=== PATIENT | male | born 1975 | race Hispanic/Latino ===

== ENCOUNTER 2020-09-18 07:17 | Emergency (ER) | payer SELFPAY ==
--- NOTE | ~2020-09-18 | XR_ITS ---
EXAMINATION: XR hand LT min 3V DATE: 09/18/2020 08:27 INDICATION: Smashing injury to the left fifth digit TECHNIQUE: Posteroanterior, oblique and lateral views of the left hand were obtained. COMPARISON: None. FINDINGS: Abnormal contour to the soft tissues along the palmar/radial aspect of the left fifth distal phalanx which could represent either laceration or artifact bandaging. Bone alignment is normal. No fracture. Joint spaces are normal. IMPRESSION: 1. No osseous abnormality. Reviewed, dictated and finalized at location A. IMPRESSION: 1. No osseous abnormality.
[2020-09-18 07:25] VITALS: BP 136/85; PULSE 55; RESP 16; TEMP 36.1; O2SAT 100
[2020-09-18] MEDS: TETANUS,DIPHTHERIA,AC PERTUSSIS ADULT (0.5 ML) BOOSTRIX IM (08:19)
--- NOTE | 2020-09-18 10:33 | ED_ITS ---
HPI - Wound/Laceration General Chief Complaint: Wound/Laceration Stated Complaint: L hand injury Time Seen by Provider: 09/18/20 08:31 Related Data Allergies Allergy/AdvReac Type Severity Reaction Status Date / Time No Known Allergies Allergy Verified 09/18/20 07:35 [facility] Social History Social History Gender identity (if verbalized by the patient): Male Course Vital Signs Vital signs: Vital Signs Temperature 36.1 C L 09/18/20 07:25 Pulse Rate 55 L 09/18/20 07:25 Respiratory Rate 16 09/18/20 07:25 Blood Pressure 136/85 09/18/20 07:25 Pulse Oximetry 100 09/18/20 07:25 Temperature 36.1 C L 09/18/20 07:25 Pulse Rate 55 L 09/18/20 07:25 Respiratory Rate 16 09/18/20 07:25 Blood Pressure 136/85 09/18/20 07:25 Pulse Oximetry 100 09/18/20 07:25 Discharge Plan Discharge Clinical Impression: Finger avulsion Patient Disposition: Home, Self-Care Condition: Stable Instructions: Skin Avulsion (ED) Additional Instructions: Follow up as follows: Dr. Simms, [facility] [address] [facility] [phone] Call today (09/18) to schedule an appointment for tomorrow (09/19) afternoon) If there is any difficulty scheduling please just go there at 1 PM Prescriptions: New hydrocodone-acetaminophen 5-325 mg tablet 1 tablet PO Q8H PRN (Reason: pain) Qty: 12 RF: 0 Follow-up/Referrals: PHYSICIAN,[facility] [place] [Primary Care Provider] -
--- NOTE | 2020-09-18 10:46 | ED_ITS ---
HPI - Wound/Laceration General Chief Complaint: Wound/Laceration Stated Complaint: L hand injury Time Seen by Provider: 09/18/20 08:31 Source: patient, family and freelance interpreter/translator Mode of arrival: ambulatory Limitations: no limitations and other (Family interprets) History of Present Illness HPI narrative: 45-year-old male Right-handed Was lifting something heavy this morning and it slipped and landed on his left fifth finger There is a large skin defect on the palmar side Is able to move the finger No other injuries Related Data Allergies Allergy/AdvReac Type Severity Reaction Status Date / Time No Known Allergies Allergy Verified 09/18/20 07:35 Review of Systems Constitutional: Constitutional: Denies weakness Respiratory: Respiratory: Denies cough and Denies dyspnea Gastrointestinal: Gastrointestinal: Denies nausea and Denies vomiting Musculoskeletal: Musculoskeletal: Reports arthralgias and Reports joint s welling Neurologic: Denies numbness and Denies weakness [facility] Social History Social History Gender identity (if verbalized by the patient): Male Exam Const: General: no acute distress and alert Orientation/consciousness: patient oriented x3 HENMT: Head: normal to inspection Eyes: Conjunctivae: conjunctivae normal EOM: EOMs intact bilaterally Resp: Effort & Inspection: normal respiratory effort and not labored Skin: General skin exam: normal color Neuro: General: moves all extremities Speech: normal speech Extrem: Other: The skin is avulsed from the left fifth finger on the palmar side from the DIP to the tip with some bone likely visible distally The nail is intact He can flex the DIP Course Course Emergency Course: Discussed with Dr. Mcgregor who recommends eval by hand at [facility] or [facility] Spoke with Dr. Simms at [facility] and we will dress him up here and he will be evaluated in her clinic there tomorrow afternoon Vital Signs Vital signs: Vital Signs Temperature 36.1 C L 09/18/20 07:25 Pulse Rate 55 L 09/18/20 07:25 Respiratory Rate 16 09/18/20 07:25 Blood Pressure 136/85 09/18/20 07:25 Pulse Oximetry 100 09/18/20 07:25 Temperature 36.1 C L 09/18/20 07:25 Pulse Rate 55 L 09/18/20 07:25 Respiratory Rate 16 09/18/20 07:25 Blood Pressure 136/85 09/18/20 07:25 Pulse Oximetry 100 09/18/20 07:25 Discharge Plan Discharge Clinical Impression: Finger avulsion Patient Disposition: Home, Self-Care Condition: Stable Instructions: Skin Avulsion (ED) Additional Instructions: Follow up as follows: Dr. Simms, [facility] [address] [place] [address]. [phone] Call today (09/18) to schedule an appointment for tomorrow (09/19) afternoon) If there is any difficulty scheduling please just go there at 1 PM Prescriptions: New hydrocodone-acetaminophen 5-325 mg tablet 1 tablet PO Q8H PRN (Reason: pain) Qty: 12 RF: 0 Follow-up/Referrals: PHYSICIAN,MA[facility]GER [facility] [Primary Care Provider] -
[2020-09-18 11:02] VITALS: BP 136/67; PULSE 60; RESP 16; O2SAT 99
== END 2020-09-18 11:00 | disposition home or self-care (01) ==
PROVIDERS: Emergency Provider Emergency Medicine
DX: S61.002A Unspecified open wound of left thumb without damage to nail, initial encounter (principal); Z23 Encounter for immunization; W20.8XXA Other cause of strike by thrown, projected or falling object, initial encounter
CPT/HCPCS: 73130; 90471; 90715; 99283